=== PATIENT | female | born 1995 | race Caucasian/White ===

== ENCOUNTER 2021-08-06 12:23 | Emergency (ER) | payer MEDICAID, SELFPAY ==
[2021-08-06 12:24] VITALS: BP 128/81; PULSE 83; RESP 18; TEMP 35.9; O2SAT 100; BMI 22.9
--- NOTE | 2021-08-06 12:47 | EKG12_ITS ---
Test Reason : CP Blood Pressure : / mmHG Vent. Rate : 079 BPM Atrial Rate : 241 BPM P-R Int : 000 ms QRS Dur : 084 ms QT Int : 394 ms P-R-T Axes : 054 080 022 degrees QTc Int : 451 ms Normal sinus rhythm Confirmed by ALEKSANDER ORNELAS, HOMER ([id number]), mapping editor MELINA LIVINGSTON ([id number]) on 08/10/2021 10:37:06 AM Referred By: CATALINA Confirmed By:HOMER ARMIJO MD
--- NOTE | 2021-08-06 12:49 | EDS_ITS ---
HPI History of Present Illness Chief Complaint: General Illness Detail of Chief Complaint: Chest pressure Informant: patient Onset/Context/Timing Onset: Days (4 days) Current Severity: Mild Maximum Severity: Moderate Narrative Narrative: Patient presents with 4-day history of waxing and waning chest pressure. She states that she thinks it is reflux but her normal reflux medications are not helping. She describes a pressure across her chest with some acid in her throat. Symptoms seem to be worse after eating. She is taking [id number] antacids as well as Tums without improvement. She also presents complaining of what she believes to be bacterial vaginosis. She states she has been dry and itchy the last several days. She was seen by her STOCK WORKER yesterday for routine pelvic examination. She states she did have pain on exam but they did not note any discharge. Gonorrhea, chlamydia, trichomonas testing were all negative at that time. Patient states she was recently on an antibiotic for UTI and did take something for a yeast infection following this course of antibiotics. She has not noted any discharge. [facility] Medical History (Updated 08/06/21 @ 14:[address] Hanna Kohli MD) GERD (gastroesophageal reflux disease) Medical History no medical history no medical history Home Medications metronidazole 500 mg PO BID 7 Days #14 tab 08/06/21 [Rx Last Taken Unknown] omeprazole magnesium [Prilosec] 20 mg PO DAILY #30 ea 08/06/21 [Rx Last Taken U nknown] Allergy/AdvReac Type Severity Reaction Status Date / Time No Known Allergies Allergy Verified 08/06/21 12:26 Surgical History (Updated 08/06/21 @ 13:06 by Lisette Harrington) History of ureter repair Social History Smoking Status: Never smoker ROS ROS ED Constitutional Constitutional ED: Denies chills or fever(s) Eyes Eyes: Denies change in vision ENT ENT ED: Denies sore throat Cardiovascular Cardiovascular: Reports chest pain Respiratory/Chest Respiratory/Chest: Reports dyspnea; Denies cough Gastrointestinal Gastrointestinal: Reports abdominal pain; Denies diarrhea, nausea or vomiting Genitourinary Genitourinary ED: Denies dysuria Musculoskeletal Musculoskeletal: Denies back pain Integumentary Denies rash Neurologic Neurologic: Denies headache(s) or weakness Allergic/Immunologic Allergic/Immunologic ED: Denies urticaria EXAM Physical Exam Const Vital Signs: 08/06/21 12:24 08/06/21 13:05 Temperature 96.7 F L Temperature Source Temporal Pulse Rate 83 Respiratory Rate 18 Respiratory Effort Normal Respiratory Pattern Normal Blood Pressure 128/81 H Blood Pressure Mean 96 Pulse Ox 100 Oxygen Delivery Method Room Air Positive well nourished and well developed General Appearance ED: well developed HEENT Reports normocephalic and head/scalp atraumatic Eyes PERRL and EOMs intact bilaterally Neck supple Chest Wall inspection of chest normal and palpation of chest normal Resp normal respiratory effort and clear to auscultation bilaterally Cardio regular rate and regular rhythm GI normal to inspection, nondistended, normoactive bowel sounds and non-tender Palpation: soft Back/Spine no CVA tenderness Extremity normal to inspection Neuro oriented x3 and no sensory deficits noted Sensorium / Orientation: alert Motor Exam: strength 5/5 throughout Psych mental status grossly normal Skin no rashes or lesions noted MDM MDM MDM Narrative Medical decision making narrative: EKG and labs were obtained. Lab Data Labs: Laboratory Results - last 24 hr 08/06/21 08/06/21 12:59 12:59 WBC 5.0 RBC 4.45 Hgb 13.1 Hct 40.3 MCV 90.6 MCH 29.4 MCHC 32.5 RDW Std Deviation 41.3 RDW Coeff of [place] 12.5 Plt Count 257 MPV 9.4 Immature Gran % (Auto) 0.200 Neut % (Auto) 47.2 Lymph % (Auto) 43.6 H Bollinger % (Auto) 7.4 Eos % (Auto) 1.0 Baso % (Auto) 0.6 Absolute Neuts (auto) 2.4 Absolute Lymphs (auto) 2.18 Nucleated RBC % 0 Sodium 139 Potassium 4.1 Chloride 106 Carbon Dioxide 29.0 Anion Gap 4 L BUN 11 Creatinine 0.72 Estim Creat Clear Calc 96.11 Est GFR (MDRD) Af Amer 128 Est GFR (MDRD) Non-Af 106 BUN/Creatinine Ratio 15.3 Glucose 95 Calcium 9.2 Troponin I High Sens 4 Lipase 116 EKG Initial EKG: Attestation: I personally reviewed and interpreted this EKG as follows: Interpretation: Sinus Rhythm (Sinus at 79 with no acute ischemia.) Treatment and Re-Evaluation Comments:: Patient was given a dose of IV Protonix. On repeat evaluation she is resting comfortably. Blood work is unremarkable including normal troponin. Lipase is normal. We will write her prescription for Prilosec. In regards to her vaginitis complaints. Patient was already treated for yeast. She had a pelvic exam done yesterday and had negative test for trichomonas, gonorrhea, chlamydia. We will treat her with a 7-day course of Flagyl for BV. She is instructed to follow-up with her ADVISORY APPLICATION DEVELOPER if not improving. Discharge Plan Triage Chief Complaint: General Illness ED Provider: Hanna Kohli Dx/Rx/DC Orders Clinical Impression: Chest pain, GERD (gastroesophageal reflux disease), Vaginitis Instructions: Preventing Vaginitis, ED GERD (Adult) Prescriptions: New metronidazole 500 mg tablet 500 mg PO BID 7 Days Qty: 14 RF: 0 Prilosec 10 mg susp,delayed release for recon 20 mg PO DAILY Qty: 30 RF: 0 Referrals: Joseph Kaur MD [STAFF PHYSICIAN] - As Needed Disposition Disposition: Home, Self Care
[2021-08-06 13:09] LABS: Absolute Lymphocyte Count 2.18 X10^3/uL (0.83-4.51); Absolute Neutrophil Count 2.4 X10^3/uL (2.0-7.7); Basophil# 0.03 X10^3/uL; Basophil% 0.6 % (0-1); Eosinophil# 0.05 X10^3/uL; Hematocrit 40.3 % (37-47); Hemoglobin 13.1 g/dL (12.0-15.0); Lymphocyte # 2.18 X10^3/ul (0.83-4.51); Lymphocyte % 43.6 % (19-41); Mean Corp Hgb Conc 32.5 g/dL (32-36); Mean Corpuscular Hgb 29.4 pg (27.0-32.0); Mean Corpuscular Volume 90.6 fL (81-99); Mean Platelet Vol. 9.4 fl (6.2-12.0); Monocyte# 0.37 X10^3/uL; Monocyte% 7.4 % (0-10); NRBC Flagged by Analyzer 0 % (0-5); Neutrophil # 2.36 X10^3/uL (2.7-7.7); Neutrophil % 47.2 % (47-70); Platelet Count 257 K/mm3 (150-450); RBC Distribution Width CV 12.5 % (11.6-14.6); RBC Distribution Width SD 41.3 fl (35.1-43.9); Red Blood Count 4.45 M/mm3 (4.2-5.4)
[2021-08-06 13:22] LABS: Anion Gap 4 (5-15); BUN 11 mg/dL (7-18); BUN/Creat Ratio 15.3 RATIO (10-20); Calcium,Total 9.2 mg/dL (8.5-10.1); Chloride 106 mmol/L (98-107); Creatinine, Serum 0.72 mg/dL (0.55-1.02); EST Glomerular Filtration Rate 106 mL/min (>60); Est Glom Filt Rate - Afr Amer 128 mL/min (>60); Estimated Creatinine Clearance 96.11 ml/min; Glucose 95 mg/dL (74-106); Lipase 116 U/L (73-393); Potassium 4.1 mmol/L (3.5-5.1); Sodium Level 139 mmol/L (136-145); Troponin-I HS 4 pg/mL (3.0-54.0)
[2021-08-06 14:37] VITALS: BP 107/71; PULSE 73; RESP 16; O2SAT 99
== END 2021-08-06 14:41 | disposition home or self-care (01) ==
PROVIDERS: Emergency Provider Emergency Medicine
DX: R07.89 Other chest pain (principal); K21.9 Gastro-esophageal reflux disease without esophagitis; N76.0 Acute vaginitis
CPT/HCPCS: 80048; 83690; 84484; 85025; 93005; 96365; 99284; A4216

== ENCOUNTER 2022-07-18 21:45 | Emergency (ER) | payer MEDICAID, SELFPAY ==
[2022-07-18 21:46] VITALS: BP 126/84; PULSE 90; RESP 14; TEMP 36.4; O2SAT 100
--- NOTE | 2022-07-18 22:52 | CT_ITS ---
STUDY: CT BRAIN WITHOUT CONTRAST REASON FOR EXAM: Female, 26 years old. Headache w/ alternating sides numbness, RADIATION DOSAGE (If Supplied By Facility): CTDIvol = ( 44.99 ) mGy, DLP = ( 796.11 ) mGycm TECHNIQUE: Transaxial CT imaging of the brain was performed without administration of intravenous contrast material. Individualized dose optimization techniques were used for this CT. COMPARISON: No relevant priors. FINDINGS: Normal soft tissue structures. Normal calvarium. Normal size ventricles and extra-axial spaces for the patient''s age. Normal white matter tracts of the cerebral hemispheres. Normal basal ganglia and thalami. Normal brainstem. Normal cerebellum. There is no intracranial hemorrhage. There are no findings of an acute ischemic infarction. Normal visualized paranasal sinuses. CT/Brain/Head without Contrast IMPRESSION: Normal unenhanced CT scan of the brain. Electronically Signed: Lauri Silva MD at 23:40 EDT ,
[2022-07-18] MEDS: proCHLORPERazine 10 MG/2 ML Vial 5 MG IV (23:05)
--- NOTE | 2022-07-19 00:19 | EX.ED.VIS.HA ---
HPI History of Present Illness Chief Complaint: Headache Informant: patient Onset/Context/Timing Onset: Today Context: Gradual Timing: Continuous Quality -Headache: Positive for Other (Aching) Location: Left frontal Current Severity: Severe Maximum Severity: Severe Worsened by: Light Relieved by: Nothing. Tried ibuprofen 2 hours ago. Associated Symptoms/Injury Associated Symptoms: Positive for Numbness, Tingling, Visual Changes, Blurred Vision and Photophobia; Negative for Fever, Nausea, Vomiting or Visual Loss Injury - BRISENO: Negative for Direct Trauma Narrative Narrative: Patient states about 7 or 8 hours prior to arrival she started having global visual disturbance that was so severe that she really could not make anything out, but she could still see light and did not have any visual loss per se. After the vision symptoms, she started getting numbness and tingling in her left arm that progressed to her left face after that. Subsequently, it seemed to switch sides and affect the right arm and face. As the numbness and tingling went away, the vision improved and she started getting a headache on the left side which has persisted ever since. The headache now has been there despite taking ibuprofen. Patient estimates total amount of time of the vision disturbance and numbness/tingling was maybe 3 hours. She states her vision is not totally back to normal but it is a lot closer. She has never had this happen before. She did not lose consciousness or have any seizure activity. She denies using any drugs recently. She did not take any medications other than the ibuprofen for this tonight. She states she has had headaches before, never diagnosed with migraines, and it has been a while since she has had 1. Right now she is about midcycle and usually fairly regular. No vaginal complaints right now. [facility] Medical History GERD (gastroesophageal reflux disease) Home Medications metronidazole 500 mg tablet 500 mg PO BID 7 days #14 tabs 08/06/21 [Rx Last Taken Unknown] omeprazole magnesium 10 mg oral suspension,delayed release (Prilosec) 20 mg PO DAILY #30 ea 08/06/21 [Rx Last Taken Unknown] Allergy/AdvReac Type Severity Reaction Status Date / Time No Known Allergies Allergy Verified 07/18/22 21:46 Surgical History (Updated 08/06/21 @ 13:06 by Lisette Harrington) History of ureter repair Social History Smoking Status: Never smoker ROS ROS ED Constitutional Constitutional ED: Denies chills or fever(s) Eyes Eyes: Reports as per HPI, blurry vision, change in vision and photophobia; Denies diplopia ENT ENT ED: Denies ear pain or sore throat Cardiovascular Cardiovascular: Denies chest pain or palpitations Respiratory/Chest Respiratory/Chest: Denies cough or dyspnea Gastrointestinal Gastrointestinal: Denies abdominal pain, diarrhea, nausea or vomiting Genitourinary Genitourinary ED: Denies dysuria or urinary frequency Musculoskeletal Musculoskeletal: Denies back pain or myalgias Integumentary Denies abscess or rash Neurologic Neurologic: Reports headache(s) and paresthesias; Denies weakness EXAM Physical Exam Const Vital Signs: 07/18/22 21:46 Temperature 97.5 F L Temperature Source Temporal Pulse Rate 90 Respiratory Rate 14 Blood Pressure 126/84 H Blood Pressure Mean 98 Pulse Ox 100 Oxygen Delivery Method Room Air HEENT Reports normocephalic and moist mucous membranes HEENT Narrative: Posterior pharynx normal atraumatic Eyes PERRL, EOMs intact bilaterally and conjunctivae normal Neck no lymphadenopathy, supple and no meningeal signs Resp normal respiratory effort and clear to auscultation bilaterally Cardio regular rate and regular rhythm Cardio Narrative: soft systolic ejection murmur GI non-tender and non-distended Palpation: soft Extremity normal to inspection and full ROM Neuro oriented x3, CN's II-XII intact bilaterally and no sensory deficits noted Neuro Narrative: Wcojqw-[id number]-[id number] and [id number] normal bilaterally Sensorium / Orientation: awake and alert Speech: speech normal Gait (Neuro): normal gait Motor Exam: strength 5/5 throughout Psych mental status grossly normal Skin Lesions: no lesions Rashes: no rashes MDM MDM MDM Narrative Medical decision making narrative: CT of the head was obtained it is negative/normal. I suspect this was an atypical migraine type headache. Her blood pressure is normal. Patient was given IV Reglan while we were awaiting CT results. She did feel quite a bit better and no more neurologic symptoms recurred. Patient is a soft systolic murmur. She was told this in the past. She does not have a PCP. She has never had an echo that she knows of, but was told by someone that she may have mitral valve prolapse. She did not remember the details here. I recommend close outpatient follow-up with a PCP who can follow her murmur. Refer to Dr. Momin, the next physician on the unassigned list. Radiography Diagnostic Testing: Clinical Impression(s) from Imaging Studies Brain CT 07/18/22 22:52 IMPRESSION: Normal unenhanced CT scan of the brain. Electronically Signed: Lauri Silva MD at 23:40 EDT , Discharge Plan Triage Chief Complaint: Headache ED Provider: Lauri Kiser Dx/Rx/DC Orders Clinical Impression: Migraine aura occurring with and without headache, Paresthesias, Transient vision disturbance Prescriptions: No Action metronidazole 500 mg tablet 500 mg PO BID 7 Days Qty: 14 0RF Prilosec 10 mg susp,delayed release for recon 20 mg PO DAILY Qty: 30 0RF Primary Care Provider: Care Physician,No Primary Referrals: Larisa Momin MD [Med Staff - Antique Clock Repairer] - (when able, for primary care - call for appt) Care Physician,No Primary [Primary Care Provider] - Disposition Disposition: Home, Self Care
== END 2022-07-19 00:34 | disposition home or self-care (01) ==
PROVIDERS: Emergency Provider Emergency Medicine; Visit Provider Emergency Medicine
DX: G43.109 Migraine with aura, not intractable, without status migrainosus (principal); R20.2 Paresthesia of skin
CPT/HCPCS: 70450; 96374; 99283; J7030; A4216

== ENCOUNTER 2023-03-17 14:04 | Emergency (ER) | payer MEDICAID, SELFPAY ==
[2023-03-17 14:04] VITALS: BP 129/86; PULSE 83; RESP 16; TEMP 36.9; O2SAT 100; BMI 21.7
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
[2023-03-17] MEDS: Ibuprofen 200 MG Tablet 400 MG PO (16:00)
[2023-03-17] MEDS: Metoclopramide 5 MG TABLET PO (16:01)
[2023-03-17 16:04] VITALS: BP 124/79; PULSE 80; RESP 16; O2SAT 99
== END 2023-03-17 16:33 | disposition home or self-care (01) ==
PROVIDERS: Emergency Provider Emergency Medicine; Visit Provider Emergency Medicine
DX: G43.909 Migraine, unspecified, not intractable, without status migrainosus (principal); R20.2 Paresthesia of skin; H53.9 Unspecified visual disturbance; K21.9 Gastro-esophageal reflux disease without esophagitis
CPT/HCPCS: 99283

== ENCOUNTER 2024-07-04 16:28 | Emergency (ER) | payer SELFPAY ==
[2024-07-04 16:31] VITALS: BP 123/79; PULSE 73; RESP 18; TEMP 36.6; O2SAT 100; BMI 25.6
[2024-07-04 17:13] LABS: Mucous, Urine 0 SEEN /hpf (<or=2+); Red Blood Cells-Urine 0 SEEN /hpf (0-5); Squamous Epithelial Cells - UA 0 SEEN /hpf (5-10)
[2024-07-04 17:16] LABS: Glucose, Dipstick Normal (Normal); Ketone-Dipstick Negative (Negative); Leukocyte Esterase-Dipstick 25 /ul (Negative); Nitrite-Dipstick Negative (Negative); Occult Blood-Urine Negative /ul (Negative); Protein-Dipstick Negative (Negative); Specific Gravity, Urine 1.005 (1.002-1.030); Urine Bilirubin Dipstick Negative (Negative); Urine Urobilinogen Normal (Normal)
[2024-07-04 17:17] LABS: Color, Urine Yellow (Yellow); Urine Clarity Clear (Clear)
[2024-07-04 17:28] LABS: Bacteria RARE /hpf (None Seen); White Blood Cells 0-5 SEEN /hpf (0-5)
[2024-07-04 18:45] VITALS: BP 117/61; PULSE 79; RESP 16; TEMP 36.8; O2SAT 100
[2024-07-04 20:00] VITALS: BP 125/58; PULSE 92; RESP 16; O2SAT 100
--- NOTE | 2024-07-04 20:22 | ED.VIS.FEGU ---
HPI HPI - Female History of Present Illness Chief Complaint: Flank Pain PFSH PFSH Medical History (Updated 07/04/24 @ 20:33 by Kathleen Mao) Heart murmur Recurrent UTI GERD (gastroesophageal reflux disease) Home Medications ?Medication ?Instructions ?Recorded ?Last Taken ?Type norgestimate-ethinyl estradiol 1 tab PO DAILY 07/04/24 Unknown History 0.18 mg/0.215mg/0.25mg-35 mcg(28)tablet Allergy/AdvReac Type Severity Reaction Status Date / Time No Known Allergies Allergy Verified 07/04/24 16:30 Surgical History (Updated 07/04/24 @ 20:33 by Kathleen Mao) Hx of wisdom tooth extraction Hx of cervical biopsy History of ureter repair Social History Smoking Status: Never smoker EXAM Physical Exam Const Vital Signs: 07/04/24 16:31 07/04/24 16:31 07/04/24 18:45 Temperature 97.9 F 97.9 F 98.2 F Temperature Source Temporal Oral Oral Pulse Rate 73 73 79 Respiratory Rate 18 18 16 Blood Pressure 123/79 H 123/79 H 117/61 Blood Pressure Mean 93 93 79 Pulse Ox 100 100 100 Oxygen Delivery Method Room Air Room Air Room Air 07/04/24 20:00 Temperature Temperature Source Pulse Rate 92 Respiratory Rate 16 Blood Pressure 125/58 H Blood Pressure Mean 80 Pulse Ox 100 Oxygen Delivery Method Room Air MDM MDM MDM Narrative Medical decision making narrative: HISTORY OF PRESENT ILLNESS: 28-year-old female presents with cold symptoms for the past week. She notes yesterday she began having right flank pain. Notes history of UTIs and ureter surgery. Notes 2 days of right-sided flank pain. The pain is not rating to the groin it is 3/10 mild not colicky. No dysuria, frequency urgency hematuria. No vaginal bleeding or discharge. No constipation or diarrhea. Denies history abdominal surgery. No other quadrant abdominal tenderness. REVIEW OF SYSTEMS: Pertinent positives: Flank pain, cold symptoms Pertinent negatives: Vomiting, fever PHYSICAL EXAM: Nursing triage notes reviewed, Vital signs reviewed Constitutional: please see mdm HENT: MMM Eyes: Pupils equal round and reactive to light, Extraocular muscles intact Neck: No stridor, no JVD, full neck ROM Lungs: Clear to auscultation, No wheezing or rales. No increased work of breathing, no conversational dyspnea, no accessory muscle use, no nasal flaring. No respiratory distress noted Heart: Regular rate and rhythm, No murmurs, No rubs and No gallops, 2+ distal pulses (radial, femoral, posterior tibial) in all extremities Abdomen: Soft, there is no tenderness, rigidity, rebound or guarding, no obvious peritoneal signs, no palpable pulsatile abdominal masses, no auscultated abdominal bruit : No CVAT Extremities: No edema Neuro: No focal neurological deficits, cranial nerves II through XII intact, 5/5 strength in all extremities. Intact sensation to light touch in all extremities, 2+ reflexes bilateral patella tendons. Normal gait. No ataxia. Skin: No rash or lesions noted MEDICAL DECISION MAKING: Chief Complaint: Flank pain MDM Narrative: Patient was hemodynamically stable, no distress, clinically not consistent with nephrolithiasis. I considered the following differential diagnosis: Nephrolithiasis, pyelonephritis, AAA, , ectopic , tubo-ovarian abscess Patient history and physical exam was not consistent with nephrolithiasis, AAA, tumor. Abscess. ALL IMAGES (IF OBTAINED) HAVE BEEN PERSONALLY REVIEWED AND INTERPRETED BY MYSELF. CBC with no leukocytosis, no anemia or thrombocytopenia BMP with mild hypokalemia otherwise no signs of metabolic acidosis, endorgan hypoperfusion, JIAN, Urine is negative, ectopic ruled out Urinalysis shows no evidence of urinary inflammation suggestive of UTI The patient's history physical exam labs images suggest no acute life-limiting etiology. The patient and/or family, caregivers express understanding. The patient and/or family, caregivers agrees with the plan. Shared decision making: I will have a discussion with the patient and or visitors regarding risk/benefits of further testing or admission. They will be made aware of of the risk/benefits inherent in this decision they will be given the opportunity to voice understanding. Total critical care time today provided was at least 0 minutes. This excludes separately billable procedures. Critical care time (if documented) is secondary to the patient having high probability of clinically significant/life threatening deterioration in the patient's condition which required my urgent intervention. Impression: 1. Flank pain 2. Hypokalemia Dispo: Discharge home This note was generated with [employer]ation software. It may contain incorrect words, spelling, and punctuation that were not noted in review of the chart prior to signing. Lab Data Labs: Laboratory Results - last 24 hr 07/04/24 07/04/24 07/04/24 16:50 20:26 20:36 WBC 7.5 RBC 4.66 Hgb 13.5 Hct 42.4 MCV 91.0 MCH 29.0 MCHC 31.8 L RDW Std Deviation 40.9 RDW Coeff of [place] 12.4 Plt Count 307 MPV 9.7 Immature Gran % (Auto) 0.100 Neut % (Auto) 55.5 Lymph % (Auto) 38.0 [place] % (Auto) 5.2 Eos % (Auto) 0.7 Baso % (Auto) 0.5 Absolute Neuts (auto) 4.1 Absolute Lymphs (auto) 2.84 Nucleated RBC % 0 Sodium 140 Potassium 3.4 L Chloride 105 Carbon Dioxide 29.0 Anion Gap 6 BUN 10 Creatinine 0.76 Estim Creat Clear Calc 98.24 Est GFR (MDRD) Af Amer 119 Est GFR (MDRD) Non-Af 98 BUN/Creatinine Ratio 13.2 Glucose 108 H Calcium 9.5 Serum , Qual Urine Color Yellow Urine Clarity Clear Urine pH 7.0 Ur Specific [place] 1.005 Urine Protein Negative Urine Glucose (UA) Normal Urine Ketones Negative Urine Occult Blood Negative Urine Nitrite Negative Urine Bilirubin Negative Urine Urobilinogen Normal Ur Leukocyte Esterase 25 H Urine RBC 0 SEEN Urine WBC 0-5 SEEN Ur Squamous Epith Cells 0 SEEN Urine Bacteria RARE Urine Mucus 0 SEEN 07/04/24 20:45 WBC RBC Hgb Hct MCV MCH MCHC RDW Std Deviation RDW Coeff of [place] Plt Count MPV Immature Gran % (Auto) Neut % (Auto) Lymph % (Auto) [place] % (Auto) Eos % (Auto) Baso % (Auto) Absolute Neuts (auto) Absolute Lymphs (auto) Nucleated RBC % Sodium Potassium Chloride Carbon Dioxide Anion Gap BUN Creatinine Estim Creat Clear Calc Est GFR (MDRD) Af Amer Est GFR (MDRD) Non-Af BUN/Creatinine Ratio Glucose Calcium Serum , Qual NEGATIVE Urine Color Urine Clarity Urine pH Ur Specific [place] Urine Protein Urine Glucose (UA) Urine Ketones Urine Occult Blood Urine Nitrite Urine Bilirubin Urine Urobilinogen Ur Leukocyte Esterase Urine RBC Urine WBC Ur Squamous Epith Cells Urine Bacteria Urine Mucus Discharge Plan Triage Chief Complaint: Flank Pain ED Provider: Tim Parkinson Dx/Rx/DC Orders Instructions: ED Flank Pain, Uncertain Cause Prescriptions: No Action norgestimate-ethinyl estradiol 0.18/0.215/0.25 mg-35 mcg (28) tablet 1 tab PO DAILY Primary Care Provider: Care Physician,No Primary Referrals: Joseph Kaur MD [Med Staff - Active Staff] - Activity Restrictions/Additional Instructions: Thank you for trusting us with your care today! Please take Tylenol (2 pills, 650 mg), ibuprofen (2 pills, 400 mg) every 6 hours as needed for pain and fever control. Please return to the emergency department if your symptoms change or worsen. Please follow with your primary care physician for further outpatient evaluation and management. Print Language: Korean Disposition Disposition: Home, Self Care
[2024-07-04 21:02] LABS: Internal QC Validated? YES +Cl - CLEAR BKGD; Pregnancy, Serum, hCG Quali. NEGATIVE Negative; Record Kit Lot#, Serum Preg. 772476
[2024-07-04] MEDS: 0.9% Normal Saline (1000mL) 1,000 ML 999 ML IV (21:26)
[2024-07-04 21:33] LABS: Absolute Lymphocyte Count 2.84 X10^3/uL (0.83-4.51); Absolute Neutrophil Count 4.1 X10^3/uL (2.0-7.7); Basophil# 0.04 X10^3/uL; Basophil% 0.5 % (0-1); Eosinophil# 0.05 X10^3/uL; Eosinophils% 0.7 % (0-5); Hematocrit 42.4 % (37-47); Hemoglobin 13.5 g/dL (12.0-15.0); Lymphocyte # 2.84 X10^3/ul (0.83-4.51); Mean Corp Hgb Conc 31.8 g/dL (32-36); Mean Platelet Vol. 9.7 fl (6.2-12.0); Monocyte# 0.39 X10^3/uL; Monocyte% 5.2 % (0-10); NRBC Flagged by Analyzer 0 % (0-5); Neutrophil # 4.14 X10^3/uL (2.7-7.7); Neutrophil % 55.5 % (47-70); Platelet Count 307 K/mm3 (150-450); RBC Distribution Width CV 12.4 % (11.6-14.6); RBC Distribution Width SD 40.9 fl (35.1-43.9); Red Blood Count 4.66 M/mm3 (4.2-5.4); White Blood Count 7.5 K/mm3 (4.4-11.0)
[2024-07-04 21:42] LABS: Anion Gap 6 (5-15); BUN 10 mg/dL (7-18); BUN/Creat Ratio 13.2 RATIO (10-20); Calcium,Total 9.5 mg/dL (8.5-10.1); Chloride 105 mmol/L (98-107); Creatinine, Serum 0.76 mg/dL (0.55-1.02); EST Glomerular Filtration Rate 98 mL/min (>60); Est Glom Filt Rate - Afr Amer 119 mL/min (>60); Estimated Creatinine Clearance 98.24 ml/min; Glucose 108 mg/dL (74-106); Potassium 3.4 mmol/L (3.5-5.1); Sodium Level 140 mmol/L (136-145)
[2024-07-04 22:00] VITALS: BP 122/62; PULSE 78; RESP 16; O2SAT 100
[2024-07-04 22:07] VITALS: BP 122/62; PULSE 75; RESP 16; TEMP 36.9; O2SAT 100
== END 2024-07-04 22:13 | disposition home or self-care (01) ==
PROVIDERS: Emergency Provider Emergency Medicine; Visit Provider Emergency Medicine
DX: R10.9 Unspecified abdominal pain (principal); E87.6 Hypokalemia; Z87.440 Personal history of urinary (tract) infections
CPT/HCPCS: 80048; 81001; 84703; 85025; 96360; 99283; J7030; A4216

== ENCOUNTER → 2025-08-13 | Outpatient (CLI) | payer OTHER, SELFPAY ==
--- NOTE | 2025-08-13 12:07 | US_ITS ---
PROCEDURE: US/Kidney and Bladder
== END | disposition home or self-care (01) ==
LOC: US 12:04
PROVIDERS: Referring Provider Urology; Visit Provider Urology
DX: N39.0 Urinary tract infection, site not specified (principal)
CPT/HCPCS: 76770

== ENCOUNTER → 2025-09-04 | Outpatient (CLI) | payer OTHER, SELFPAY ==
--- NOTE | 2025-09-04 19:00 | CT_ITS ---
PROCEDURE: ABDOMEN/PELVIS WITHOUT CONT 09/04/2025 REASON FOR EXAM: STONES TECHNIQUE: Procedure Code: CTABDPEL Modality: CT Procedure: ABDOMEN/PELVIS WITHOUT CONT Noncontrast technique limits evaluation of the abdominal and pelvic viscera. Coronal and Sagittal reconstruction series were provided. One or more dose reduction techniques were used (e.g., Automated exposure control, adjustment of the mA and/or kV according to patient size, use of iterative reconstruction technique). FINDINGS: Lack of IV and oral contrast limits evaluation on portions of this study. The visualized lung bases are clear. The unenhanced liver, gallbladder, pancreas, spleen, adrenal glands, kidneys, and urinary bladder appear grossly unremarkable. No CT evidence of a urinary stone or obstructive uropathy. No evidence of a bowel obstruction. No bowel wall thickening. A moderate amount of stool is noted within the right side of the colon. The appendix is not clearly visualized, however no inflammatory changes are noted in the pericecal region. An oval low-density within the right adnexa likely represents the right ovary. No intraperitoneal free air or free fluid. No abdominal nor pelvic lymphadenopathy. No acute osseous abnormality. No acute fracture. CT/Abdomen/Pelvis without Cont IMPRESSION: Moderate amount of stool within the right side of the colon. Otherwise no CT evidence of an acute abdominal or pelvic process. Reading Location: [id number]
== END | disposition home or self-care (01) ==
LOC: CT 18:45
PROVIDERS: Referring Provider Urology; Visit Provider Urology
DX: N20.0 Calculus of kidney (principal)
CPT/HCPCS: 74176

== ENCOUNTER → 2025-09-24 | Outpatient (CLI) | payer OTHER, SELFPAY | END | disposition home or self-care (01) | PROVIDERS: Referring Provider Urology; Visit Provider Urology | DX: N39.0 Urinary tract infection, site not specified (principal) | CPT/HCPCS: 87086 ==